=== PATIENT | female | born 1960 | race Caucasian/White ===

== ENCOUNTER 2017-08-02 21:19 | Emergency (ER) | payer OTHER ==
[~2017-08-02] VITALS: Ht 170.1 cm; Wt 68.0 kg
[2017-08-02] MEDS ORDERED: NORCO 5-325 TA1 EACH PO (22:45)
== END 2017-08-02 22:59 | disposition home or self-care (01) ==
LOC: ED 21:19
DX: S52.122A Displaced fracture of head of left radius, initial encounter for closed fracture (principal); X50.9XXA Other and unspecified overexertion or strenuous movements or postures, initial encounter; Y93.89 Activity, other specified; Y92.89 Other specified places as the place of occurrence of the external cause; Y99.8 Other external cause status